=== PATIENT | female | born 1990 | race Two or more races ===

== ENCOUNTER 2019-05-02 09:43 | Emergency (ER) | payer MEDICAID, OTHER ==
[~2019-05-02] VITALS: Ht 152.4 cm; Wt 62.0 kg
[2019-05-02] MEDS ORDERED: KETOROLAC 30 MG/1 ML ONE (10:48)
--- NOTE | 2019-05-02 10:52 | NUR ---
PT MED NOTED FOR PAIN 10/24
[2019-05-02] MEDS ORDERED: KETOROLAC 30 MG/1 ML IM ONE (11:00)
[2019-05-02 12:56] VITALS: BP 108/66
--- NOTE | 2019-05-02 12:56 | NUR ---
Patient/Caregiver given discharge instructions and they have confirmed that they understand the instructions. Patient ambulatory with steady gait.
--- NOTE | 2019-05-02 12:57 | NUR ---
PAIN AT D/C 08/24
== END 2019-05-02 12:57 | disposition home or self-care (01) ==
LOC: ED 10:38
DX: S39.012A Strain of muscle, fascia and tendon of lower back, initial encounter (principal); S16.1XXA Strain of muscle, fascia and tendon at neck level, initial encounter; S13.4XXA Sprain of ligaments of cervical spine, initial encounter; G89.11 Acute pain due to trauma; V86.19XA Passenger of other special all-terrain or other off-road motor vehicle injured in traffic accident, initial encounter; Y93.89 Activity, other specified; Y92.098 Other place in other non-institutional residence as the place of occurrence of the external cause; Y99.8 Other external cause status
CPT/HCPCS: 72110; 72125; 96372; 99284; J1885